=== PATIENT | male | born 1955 | race Caucasian/White ===

== ENCOUNTER → 2017-12-10 | Outpatient (CLI) | payer OTHER ==
[~2017-12-10] MED LIST: DVN80 PO; FLM4 PO; MULTIVITAMIN PACK PO
[2017-12-10 13:35] LABS: CREATININE RANDOM URINE 29.5 mg/dl
== END | disposition home or self-care (01) ==
LOC: C.LABMFLN 10:10
PROVIDERS: ATTEND Family Medicine
DX: E13.42 Other specified diabetes mellitus with diabetic polyneuropathy (principal)

== ENCOUNTER → 2018-03-23 | Outpatient (CLI) | payer OTHER ==
[2018-03-23 13:20] LABS: HEMOGLOBIN A1C 7.1 % (4.5-5.6)
== END | disposition home or self-care (01) ==
LOC: C.LABMFLN 10:04
PROVIDERS: ATTEND Family Medicine
DX: I10 Essential (primary) hypertension (principal); E78.00 Pure hypercholesterolemia, unspecified; E13.42 Other specified diabetes mellitus with diabetic polyneuropathy